=== PATIENT | male | born 1980 | race Caucasian/White ===

== ENCOUNTER 2020-12-26 20:33 | Emergency (ER) | payer MEDICAID ==
[~2020-12-26] VITALS: Ht 177.8 cm; Wt 80.9 kg
--- NOTE | 2020-12-26 20:37 | NUR ---
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
[2020-12-26 21:03] VITALS: BP 127/92
--- NOTE | 2020-12-26 22:05 | NUR ---
PT AMBULATED BACK TO ROOM WITHOUT DIFFICULTY.
[2020-12-26] MEDS ORDERED: [UNRECOGNIZED DRUG - REMARK] PO (22:13)
[2020-12-26] MEDS ORDERED: LEVE500T53 PO (22:13)
--- NOTE | 2020-12-26 22:14 | NUR ---
PT REPORTS HE JUST GOT OUT OF CUSTODIAL. EXTENSIVE BLISTERS/ULCERS ON SOLES OF BILAT FEET, L WORSE THAN R. PT STATES HE WALKS A LOT DURING THE DAY, WEARS SHOES AND SOCKS.
--- NOTE | 2020-12-26 22:24 | NUR ---
ERP WAS IN TO SEE PT.
[2020-12-26] MEDS ORDERED: NEOSPORIN OINT. PKT 1 PACKET ONE (23:06)
--- NOTE | 2020-12-26 23:14 | NUR ---
BILAT FEET SOAKED IN IODINE FOR SEVERAL MINUTES PER ERP. THEN DRESSED WITH ABX OINTMENT, ADAPTIC, GAUZE, KERLIX WRAP. CLEAN SOCKS APPLIED. D/C INSTRUCTIONS, MEDS & F/U APPT RV'WD WITH PT. RX GIVEN X2. INSTRUCTED PT TO RETURN TO ED FOR WORSENING SYMPTOMS OR IF NOT IMPROVING. AMBULATED OUT OF ED WITHOUT DIFFICULTY. INFO PROVIDED TO PT ON MTM CAB.
== END 2020-12-26 23:15 | disposition home or self-care (01) ==
LOC: ED 23:09
DX: L89.892 Pressure ulcer of other site, stage 2 (principal); Z72.9 Problem related to lifestyle, unspecified; F17.210 Nicotine dependence, cigarettes, uncomplicated
CPT/HCPCS: 99283; 99406